=== PATIENT | male | born 1960 | race Caucasian/White ===

== ENCOUNTER 2016-04-12 09:11 | Emergency (ER) | payer BC ==
[~2016-04-12 09:11] MED LIST: ACET65TA; CIPR500T19; FLAG500T; IBUP600T; No Historical Meds; VICO5TAB
[2016-04-12 10:30] LABS: BASO % 0.4 % (0.0-1.0); EOS # 0.1 K/mm3 (0.0-0.50); EOS % 1.2 % (0.0-3.0); LARGE UNSTAINED CELL # 0.2 K/mm3 (0.0-0.4); LARGE UNSTAINED CELL % 1.8 % (0.0-4.0); LYMPH # 2.4 K/mm3 (1.5-4.5); LYMPH % 27.4 % (24.0-44.0); MEAN CORPUSCULAR HEMOGLOBIN 27.6 pg (27.0-33.0); MEAN CORPUSCULAR HGB CONC 32.3 g/dl (32.0-36.5); MEAN CORPUSCULAR VOLUME 85.6 fl (80.0-96.0); MONO # 0.5 K/mm3 (0.0-0.8); MONO % 5.7 % (0.0-5.0); NEUTROPHILS # 5.5 K/mm3 (1.8-7.7); NEUTROPHILS % 63.4 % (36.0-66.0); PLATELET COUNT, AUTOMATED 269 k/mm3 (150-450); WHITE BLOOD COUNT 8.6 K/mm3 (4.0-10.0)
[2016-04-12 10:56] LABS: ANION GAP 5 MEQ/L (8-16); BLOOD UREA NITROGEN 17 MG/DL (7-18); CARBON DIOXIDE LEVEL 28 MEQ/L (21-32); CHLORIDE LEVEL 108 MEQ/L (98-107); GLOMERULAR FILTRATION RATE > 60.0 (>56); GLUCOSE, FASTING 101 MG/DL (70-105); POTASSIUM SERUM 4.3 MEQ/L (3.5-5.1); SODIUM LEVEL 141 MEQ/L (136-145)
--- NOTE | 2016-04-12 11:20 | EDDOCDS ---
Physician Documentation [facility] Name: Dom Delong Age: 55 yrs Sex: Male : 1960 Arrival Date: 04/12/2016 Time: 09:11 Bed 14 Private MD: Yung Cordero Disposition: 04/12/16 11:08 Discharged to Home/Self Care. Impression: Strain of muscle and tendon of unspecified wall of thorax. - Condition is Stable. - Discharge Instructions: Muscle Strain. - Prescriptions for Naprosyn 500 mg Oral Tablet - take 1 tablet by ORAL route 2 times per day take with food; 30 tablet. - Medication Reconciliation, Local Pharmacy Hours form. - Follow up: Yung Cordero MD; When: As needed; Reason: Recheck today's complaints, Continuance of care. Follow up: Emergency Department; When: As needed; Reason: Trouble breathing, Worsening of conditions. - Problem is new. - Symptoms have improved. Historical: - Allergies: ANTIHISTAMINES; - Home Meds: 1. Nghia 5-20 mg oral tab 1 tab once daily - PMHx: Hypertension; - PSHx: Appendectomy; left knee; Sinus Surgery; Cholecystectomy; Hernia repair; - Social history: Smoking status: Patient states former smoker of tobacco. No barriers to communication noted, The patient speaks fluent Romanian, Speaks appropriately for age. - Family history: Not pertinent. - : The pt / caregiver states he / she is not on anticoagulants. Home medication list is obtained from the patient. - Exposure Risk Screening:: None identified. Vital Signs: 04/12 09:12 BP 163 / 82; Pulse 86; Resp 18; Temp 98.2(O); Pulse Ox 97% on R/A; Weight 113.4 kg / dem1 250 lbs; Height 5 ft. 8 in. (172.72 cm); Pain 7/10; 10:11 BP 130 / 78 (auto/); kc3 10:12 Pulse 80 MON; Pulse Ox 96% ; kc3 10:26 BP 120 / 73 (auto/); kc3 10:26 Pulse 74 MON; Pulse Ox 94% ; kc3 10:41 BP 118 / 72 (auto/); kc3 10:41 Pulse 74 MON; Pulse Ox 96% ; kc3 10:56 BP 128 / 75 (auto/); kc3 10:56 Pulse 70 MON; Pulse Ox 95% ; kc3 11:17 BP 122 / 77; Pulse 78; Resp 18; Temp 97.7(O); Pulse Ox 95% on R/A; Pain 3/10; kc3 09:12 Body Mass Index 38.01 (113.40 kg, 172.72 cm) dem1 MDM: 09:31 ECG WITH READING ER PHYS+CARDIAG ordered. EDMS 09:56 Financial registration complete. gb 09:56 [facility] Payment Agreement was scanned into [employer] and attached to record. gb 10:01 [employer] Architect/Pulse Ox/q 15 min VS ordered. ar2 10:02 CBC with Diff Ordered. EDMS 10:02 MED Profile Ordered. EDMS 10:02 D-Dimer Quant Ordered. EDMS 10:02 Troponin Ordered. EDMS 10:03 Rib Unilat W/PA Chest Only Ordered. EDMS 11:01 CBC with Diff Reviewed. ar2 11:01 MED Profile Reviewed. ar2 11:01 D-Dimer Quant Reviewed. ar2 11:01 Troponin Reviewed. ar2 Signatures: Dispatcher [employer] EDMS Nati Betancourt, Reg Reg gb Doc Carranza, RN RN mlb1 [place], PA-C PA-C ar2 Ashwini Ovalle,RN RN kc3 The chart was reviewed and I authenticate all verbal orders and agree with the evaluation and treatment provided.Attachments: 09:56 [facility] Payment Agreement gb MTDD
--- NOTE | 2016-04-12 11:20 | EDDOCDS ---
Nurse's Notes [facility] Name: Dom Delong Age: 55 yrs Sex: Male : 1960 Arrival Date: 04/12/2016 Time: 09:11 Bed 14 Private MD: Yung Cordero Diagnosis: Strain of muscle and tendon of unspecified wall of thorax Presentation: 04/12 09:14 Presenting complaint: Patient states: Left lateral chest wall pain began "a couple mlb1 hours ago" pain with repiration and movement. Acute neurological deficits are not present. Mechanism of Injury: No Mechanism of Injury. Adult Sepsis Screening: The patient does not have new or worsening altered mentation. Patient's respiratory rate is less than 22. Systolic blood pressure is greater than 100. Patient has a qSOFA score of 0- Negative Sepsis Screen. Suicide/Homicide risk assessment- the patient denies having any suicidal and/or homicidal ideations and does not present with any other emotional, behavioral or mental health complaints. Status: Patient is not a customer service administrator or dependent. Transition of care: patient was not received from another setting of care. 09:14 Acuity: FACUNDO Level 3 mlb1 09:14 Method Of Arrival: Walkin/Carried/Asstd mlb1 Triage Assessment: 09:17 General: Appears in no apparent distress, Behavior is appropriate for age, cooperative. mlb1 Pain: Location: left lateral posterior chest Pain currently is 4 out of 10 on a pain scale. At worst was 10 out of 10 on a pain scale. Pt Declines HIV testing. Respiratory: Airway is patent Respiratory effort is even, unlabored. Musculoskeletal: Range of motion intact in all extremities. Historical: - Allergies: ANTIHISTAMINES; - Home Meds: 1. Nghia 5-20 mg oral tab 1 tab once daily - PMHx: Hypertension; - PSHx: Appendectomy; left knee; Sinus Surgery; Cholecystectomy; Hernia repair; - Social history: Smoking status: Patient states former smoker of tobacco. No barriers to communication noted, The patient speaks fluent Panamanian, Speaks appropriately for age. - Family history: Not pertinent. - : The pt / caregiver states he / she is not on anticoagulants. Home medication list is obtained from the patient. - Exposure Risk Screening:: None identified. Screenin:22 Screening information is obtained from the patient. Fall risk: No risks identified. kc3 Assistance ADL's: requires no assistance with activities of daily living. Abuse/DV Screen: The patient / caregiver reports he/she is: not in a situation that causes fear, pain or injury. Nutritional screening: No deficits noted. home support is adequate. 11:18 Advance Directives: Currently, there is no health care proxy. kc3 Assessment: 10:21 General: Appears in no apparent distress, comfortable, Behavior is appropriate for age, kc3 cooperative. Pain: Location: left lateral posterior chest Pain currently is 5 out of 10 on a pain scale. Neurological: Level of Consciousness is awake, alert, obeys commands, Oriented to person, place, time. Cardiovascular: Rhythm is regular. Cardiovascular: Chest pain is described as Pain is 5 out of 10 on a pain scale. radiates back episodes are continuous. Respiratory: Airway is patent Respiratory effort is even, unlabored, Reports pain with respiration. Derm: Skin is pink, warm & dry. Musculoskeletal: Circulation, motion, and sensation intact. 11:16 General: Appears in no apparent distress, comfortable, Behavior is appropriate for age, kc3 cooperative. Pain: Location: left lateral posterior chest Pain currently is 3 out of 10 on a pain scale. Neurological: Level of Consciousness is awake, alert, obeys commands, Oriented to person, place, time. Cardiovascular: Rhythm is regular Chest pain. Respiratory: Respiratory effort is even, unlabored. Derm: Skin is pink, warm & dry. Vital Signs: 09:12 BP 163 / 82; Pulse 86; Resp 18; Temp 98.2(O); Pulse Ox 97% on R/A; Weight 113.4 kg; dem1 Height 5 ft. 8 in. (172.72 cm); Pain 7/10; 10:11 BP 130 / 78 (auto/); kc3 10:12 Pulse 80 MON; Pulse Ox 96% ; kc3 10:26 BP 120 / 73 (auto/); kc3 10:26 Pulse 74 MON; Pulse Ox 94% ; kc3 10:41 BP 118 / 72 (auto/); kc3 10:41 Pulse 74 MON; Pulse Ox 96% ; kc3 10:56 BP 128 / 75 (auto/); kc3 10:56 Pulse 70 MON; Pulse Ox 95% ; kc3 11:17 BP 122 / 77; Pulse 78; Resp 18; Temp 97.7(O); Pulse Ox 95% on R/A; Pain 3/10; kc3 09:12 Body Mass Index 38.01 (113.40 kg, 172.72 cm) [facility] Vitals: 09:12 Log In Time: April 12, 2016 at 09:10. [facility] ED Course: 09:12 Patient visited by Martha Cummings. dem1 09:12 Yung Cordero MD is Private Physician. dem1 09:12 Patient moved to Waiting dem1 09:13 Patient moved to Pre RCE dem1 09:14 Patient visited by Doc Carranza RN. mlb1 09:15 Triage Initiated mlb1 09:17 Patient visited by Doc Carranza RN. mlb1 09:17 Patient moved to Triage 2 mlb1 09:24 [place] PA-C is PHCP. ar2 09:24 Chucho Davis MD is Attending Physician. ar2 09:27 Patient visited by [place] PA-C. ar2 09:34 Patient moved to PD ck1 09:40 EKG done. (by ED staff). Reviewed by [place] PA-C. jml1 09:41 Patient visited by Michele Myers. jml1 09:56 [facility] Payment Agreement was scanned into [employer] and attached to record. gb 09:58 Patient name changed from Dom\\S\\H\\S\\Delong\\S\\ to Dom\\S\\Sergey\\S\\Delong. EDMS 10:04 Ashwini Ovalle RN is Primary Nurse. ck1 10:04 Patient moved to 14 ck1 10:21 Patient visited by Ashwini Ovalle RN. kc3 10:21 Troponin Sent. kc3 10:21 D-Dimer Quant Sent. kc3 10:21 MED Profile Sent. kc3 10:21 CBC with Diff Sent. kc3 10:22 Inserted saline lock: 20 gauge in left antecubital area and blood collected. The kc3 patient tolerated the procedure well. 10:23 The patient / caregiver is instructed regarding the plan of care and ED course. kc3 10:53 Patient visited by Ashwini Ovalle RN. kc3 11:07 Yung Cordero MD is Referral Physician. ar2 11:09 Patient visited by [place] PA-C. ar2 11:18 Discontinued IV lock intact, bleeding controlled, pressure dressing applied, No kc3 redness/swelling at site. No procedures done that require assistance. Order Results: Lab Order: CBC with Diff; SPEC'M 04/12/16 10:18 Test: WHITE BLOOD COUNT; Value: 8.6; Range: 4.0-10.0; Units: K/mm3; Status: F Test: RED BLOOD COUNT; Value: 5.23; Range: 4.30-6.10; Units: M/mm3; Status: F Test: HEMOGLOBIN; Value: 14.4; Range: 14.0-18.0; Units: g/dl; Status: F Test: HEMATOCRIT; Value: 44.8; Range: 42.0-52.0; Units: %; Status: F Test: MEAN CORPUSCULAR VOLUME; Value: 85.6; Range: 80.0-96.0; Units: fl; Status: F Test: MEAN CORPUSCULAR HEMOGLOBIN; Value: 27.6; Range: 27.0-33.0; Units: pg; Status: F Test: MEAN CORPUSCULAR HGB CONC; Value: 32.3; Range: 32.0-36.5; Units: g/dl; Status: F Test: RED CELL DISTRIBUTION WIDTH; Value: 13.0; Range: 11.5-14.5; Units: %; Status: F Test: PLATELET COUNT, AUTOMATED; Value: 269; Range: 150-450; Units: k/mm3; Status: F Test: NEUTROPHILS %; Value: 63.4; Range: 36.0-66.0; Units: %; Status: F Test: LYMPH %; Value: 27.4; Range: 24.0-44.0; Units: %; Status: F Test: MONO %; Value: 5.7; Range: 0.0-5.0; Abnormal: Above high normal; Units: %; Status: F Test: EOS %; Value: 1.2; Range: 0.0-3.0; Units: %; Status: F Test: BASO %; Value: 0.4; Range: 0.0-1.0; Units: %; Status: F Test: LARGE UNSTAINED CELL %; Value: 1.8; Range: 0.0-4.0; Units: %; Status: F Test: NEUTROPHILS #; Value: 5.5; Range: 1.8-7.7; Units: K/mm3; Status: F Test: LYMPH #; Value: 2.4; Range: 1.5-4.5; Units: K/mm3; Status: F Test: MONO #; Value: 0.5; Range: 0.0-0.8; Units: K/mm3; Status: F Test: EOS #; Value: 0.1; Range: 0.0-0.50; Units: K/mm3; Status: F Test: BASO #; Value: 0.0; Range: 0.0-0.2; Units: K/mm3; Status: F Test: LARGE UNSTAINED CELL #; Value: 0.2; Range: 0.0-0.4; Units: K/mm3; Status: F Lab Order: MED Profile; SPEC'M 04/12/16 10:18 Test: GLUCOSE, FASTING; Value: 101; Range: 70-105; Units: MG/DL; Status: F Test: BLOOD UREA NITROGEN; Value: 17; Range: 7-18; Units: MG/DL; Status: F Test: CREATININE FOR GFR; Value: 0.80; Range: 0.70-1.30; Units: MG/DL; Status: F Test: GLOMERULAR FILTRATION RATE; Value: > 60.0; Range: >56; Status: F Test: SODIUM LEVEL; Value: 141; Range: 136-145; Units: MEQ/L; Status: F Test: POTASSIUM SERUM; Value: 4.3; Range: 3.5-5.1; Units: MEQ/L; Status: F Test: CHLORIDE LEVEL; Value: 108; Range: 98-107; Abnormal: Above high normal; Units: MEQ/L; Status: F Test: CARBON DIOXIDE LEVEL; Value: 28; Range: 21-32; Units: MEQ/L; Status: F Test: ANION GAP; Value: 5; Range: 8-16; Abnormal: Below low normal; Units: MEQ/L; Status: F Test: CALCIUM LEVEL; Value: 9.0; Range: 8.5-10.1; Units: MG/DL; Status: F Test Note: ; Units are mL/min/1.73 m2 Chronic Kidney Disease Staging per NKF: Stage I & II GFR >=60 Normal to Mildly Decreased Stage III GFR 30-59 Moderately Decreased Stage IV GFR 15-29 Severely Decreased Stage V GFR <15 Very Little GFR Left ESRD GFR <15 on SENIOR COMPLIANCE OFFICER Lab Order: D-Dimer Quant; SPEC'M 04/12/16 10:18 Test: D-DIMER QUANT; Value: 436.0; Range: <500; Units: ng/ml; Status: F Lab Order: Troponin; SPEC'M 04/12/16 10:18 Test: TROPONIN I; Value: < 0.02; Range: < 0.10; Units: NG/ML; Status: F Test Note: ; Troponin I Reference Interval for [facility] LOCI: 99th Percentile= 0.00-0.045 ng/ml Risk Stratification: <= 0.10 ng/ml Decreased Risk for Adverse Clinical Events. 0.10-1.50 ng/ml Increased Risk for Adverse Clinical Events. Evaluation of additional criterion and/or repeat testing in 2-6 hours is suggested to rule out myocardial damage. >= 1.50 ng/ml Indicative of Myocardial Injury. Outcome: 11:08 Discharge ordered by Provider. ar2 11:18 Discharge Assessment: Patient awake, alert and oriented x 3. No cognitive and/or kc3 functional deficits noted. Patient verbalized understanding of disposition instructions. patient administered narcotics - no. The following High Risk Discharge criteria are identified: None. Discharged to home ambulatory. Condition: stable. Discharge instructions given to patient, Instructed on discharge instructions, follow up and referral plans. medication usage, Demonstrated understanding of instructions, medications, Pt was receptive of discharge instructions/ teaching. Prescriptions given X 1. No special radiology studies were completed. Property :Personal belongings accompany Pt. 11:18 Patient left the ED. kc3 Signatures: Dispatcher [employer] EDMS Nati Betancourt, Reg Reg Doc Perez, RN RN mlb1 Sri Saucedo,RN RN ck1 [place] PA-C PA-C ar2 Michele Myersl1 Martha Cummings Kelsi,RN RN kc3 MTDD
--- NOTE | 2016-04-12 11:48 | REP ---
PA CHEST WITH LEFT RIBS: 04/12/2016. Clinical history: Lateral chest wall pain. Findings. Lungs are well inflated and without infiltrate or effusion. The heart, mediastinal and hilar contours are normal. Airway is intact. There is an azygos lobe fissure in the right medial apex unchanged and a benign variation. There are degenerative changes in the spine. No free air under the diaphragm. There is image artifact over the right upper quadrant. Left ribs: Four views of the ribs show the clavicle, scapula and visualized humerus intact. Posterior rib articulations are preserved. There are marginal osteophytes throughout the mid and lower thoracic spine and into the upper lumbar spine right upper quadrant clips from cholecystectomy are seen in the ribs show no visible or displaced fracture, avulsion, focal lesion, lateral pleural thickening, effusion or pneumothorax. Impression: 1. Negative PA chest and left rib series for any acute finding. Signed by Kavin Haynes MD 04/12/2016 07:34 P
--- NOTE | 2016-04-12 14:42 | ECGEPIP ---
Stationary ECG Study [facility] - ED Test Date: 2016-04-12 Pat Name: ZACKARY GOODE Department: Room: - Gender: M Chaser Tar: JAIMEE : 1960 Requested By: JENNIFER HOOKS PA-C. Order Number: [id number] Reading MD: Chucho Davis Measurements Intervals [place] Rate: 80 P: 11 CA: 213 QRS: -16 QRSD: 121 T: 11 QT: 369 QTc: 426 Interpretive Statements SINUS RHYTHM WITH FIRST DEGREE AV BLOCK RIGHT BUNDLE BRANCH BLOCK cw 03/17/13 - rate decreased nonspecific st t wave changes Electronically Signed On 04-12-2016 14:42:11 EST by Chucho Davis
--- NOTE | 2016-04-14 12:20 | EDDOCDS ---
Physician Documentation [facility] Name: Dom Delong Age: 55 yrs Sex: Male : 1960 Arrival Date: 04/12/2016 Time: 09:11 Bed 14 Private MD: Yung Cordero Disposition: 04/12/16 11:08 Discharged to Home/Self Care. Impression: Strain of muscle and tendon of unspecified wall of thorax. - Condition is Stable. - Discharge Instructions: Muscle Strain. - Prescriptions for Naprosyn 500 mg Oral Tablet - take 1 tablet by ORAL route 2 times per day take with food; 30 tablet. - Medication Reconciliation, Local Pharmacy Hours form. - Follow up: Yung Cordero MD; When: As needed; Reason: Recheck today's complaints, Continuance of care. Follow up: Emergency Department; When: As needed; Reason: Trouble breathing, Worsening of conditions. - Problem is new. - Symptoms have improved. Historical: - Allergies: ANTIHISTAMINES; - Home Meds: 1. Nghia 5-20 mg oral tab 1 tab once daily - PMHx: Hypertension; - PSHx: Appendectomy; left knee; Sinus Surgery; Cholecystectomy; Hernia repair; - Social history: Smoking status: Patient states former smoker of tobacco. No barriers to communication noted, The patient speaks fluent Turkish, Speaks appropriately for age. - Family history: Not pertinent. - : The pt / caregiver states he / she is not on anticoagulants. Home medication list is obtained from the patient. - Exposure Risk Screening:: None identified. Vital Signs: 04/12 09:12 BP 163 / 82; Pulse 86; Resp 18; Temp 98.2(O); Pulse Ox 97% on R/A; Weight 113.4 kg / dem1 250 lbs; Height 5 ft. 8 in. (172.72 cm); Pain 7/10; 10:11 BP 130 / 78 (auto/); kc3 10:12 Pulse 80 MON; Pulse Ox 96% ; kc3 10:26 BP 120 / 73 (auto/); kc3 10:26 Pulse 74 MON; Pulse Ox 94% ; kc3 10:41 BP 118 / 72 (auto/); kc3 10:41 Pulse 74 MON; Pulse Ox 96% ; kc3 10:56 BP 128 / 75 (auto/); kc3 10:56 Pulse 70 MON; Pulse Ox 95% ; kc3 11:17 BP 122 / 77; Pulse 78; Resp 18; Temp 97.7(O); Pulse Ox 95% on R/A; Pain 3/10; kc3 09:12 Body Mass Index 38.01 (113.40 kg, 172.72 cm) dem1 MDM: 09:31 ECG WITH READING ER PHYS+CARDIAG ordered. EDMS 09:56 Financial registration complete. gb 09:56 [facility] Payment Agreement was scanned into [employer] and attached to record. gb 10:01 Material Cutter/Pulse Ox/q 15 min VS ordered. ar2 10:02 CBC with Diff Ordered. EDMS 10:02 MED Profile Ordered. EDMS 10:02 D-Dimer Quant Ordered. EDMS 10:02 Troponin Ordered. EDMS 10:03 Rib Unilat W/PA Chest Only Ordered. EDMS 11:01 CBC with Diff Reviewed. ar2 11:01 MED Profile Reviewed. ar2 11:01 D-Dimer Quant Reviewed. ar2 11:01 Troponin Reviewed. ar2 17:49 T-Sheet-- Draft Copy was scanned into [employer] and attached to record. r 04/13 18:26 ECG/EKG was scanned into [employer] and attached to record. kf3 Signatures: Dispatcher [employer] EDMS Nati Betancourt, Reg Reg gb Doc Carranza, RN RN mlb1 Yo Bell, Reg Reg kf3 [place], PA-C PA-C ar2 Ashwini Ovalle RN RN kc3 Lety Dalton The chart was reviewed and I authenticate all verbal orders and agree with the evaluation and treatment provided.Attachments: 04/12 09:56 [facility] Payment Agreement gb 17:49 T-Sheet-- Draft Copy r 04/13 18:26 ECG/EKG kf3 Chart Complete MTDD
--- NOTE | 2016-04-14 12:20 | EDDOCDS ---
Nurse's Notes [facility] Name: Zackary Delong Age: 55 yrs Sex: Male : 1960 Arrival Date: 04/12/2016 Time: 09:11 Bed 14 Private MD: Yung Cordero Diagnosis: Strain of muscle and tendon of unspecified wall of thorax Presentation: 04/12 09:14 Presenting complaint: Patient states: Left lateral chest wall pain began "a couple mlb1 hours ago" pain with repiration and movement. Acute neurological deficits are not present. Mechanism of Injury: No Mechanism of Injury. Adult Sepsis Screening: The patient does not have new or worsening altered mentation. Patient's respiratory rate is less than 22. Systolic blood pressure is greater than 100. Patient has a qSOFA score of 0- Negative Sepsis Screen. Suicide/Homicide risk assessment- the patient denies having any suicidal and/or homicidal ideations and does not present with any other emotional, behavioral or mental health complaints. Status: Patient is not a x ray service technician or dependent. Transition of care: patient was not received from another setting of care. 09:14 Acuity: FACUNDO Level 3 mlb1 09:14 Method Of Arrival: Walkin/Carried/Asstd mlb1 Triage Assessment: 09:17 General: Appears in no apparent distress, Behavior is appropriate for age, cooperative. mlb1 Pain: Location: left lateral posterior chest Pain currently is 4 out of 10 on a pain scale. At worst was 10 out of 10 on a pain scale. Pt Declines HIV testing. Respiratory: Airway is patent Respiratory effort is even, unlabored. Musculoskeletal: Range of motion intact in all extremities. Historical: - Allergies: ANTIHISTAMINES; - Home Meds: 1. Nghia 5-20 mg oral tab 1 tab once daily - PMHx: Hypertension; - PSHx: Appendectomy; left knee; Sinus Surgery; Cholecystectomy; Hernia repair; - Social history: Smoking status: Patient states former smoker of tobacco. No barriers to communication noted, The patient speaks fluent Malian, Speaks appropriately for age. - Family history: Not pertinent. - : The pt / caregiver states he / she is not on anticoagulants. Home medication list is obtained from the patient. - Exposure Risk Screening:: None identified. Screenin:22 Screening information is obtained from the patient. Fall risk: No risks identified. kc3 Assistance ADL's: requires no assistance with activities of daily living. Abuse/DV Screen: The patient / caregiver reports he/she is: not in a situation that causes fear, pain or injury. Nutritional screening: No deficits noted. home support is adequate. 11:18 Advance Directives: Currently, there is no health care proxy. kc3 Assessment: 10:21 General: Appears in no apparent distress, comfortable, Behavior is appropriate for age, kc3 cooperative. Pain: Location: left lateral posterior chest Pain currently is 5 out of 10 on a pain scale. Neurological: Level of Consciousness is awake, alert, obeys commands, Oriented to person, place, time. Cardiovascular: Rhythm is regular. Cardiovascular: Chest pain is described as Pain is 5 out of 10 on a pain scale. radiates back episodes are continuous. Respiratory: Airway is patent Respiratory effort is even, unlabored, Reports pain with respiration. Derm: Skin is pink, warm & dry. Musculoskeletal: Circulation, motion, and sensation intact. 11:16 General: Appears in no apparent distress, comfortable, Behavior is appropriate for age, kc3 cooperative. Pain: Location: left lateral posterior chest Pain currently is 3 out of 10 on a pain scale. Neurological: Level of Consciousness is awake, alert, obeys commands, Oriented to person, place, time. Cardiovascular: Rhythm is regular Chest pain. Respiratory: Respiratory effort is even, unlabored. Derm: Skin is pink, warm & dry. Vital Signs: 09:12 BP 163 / 82; Pulse 86; Resp 18; Temp 98.2(O); Pulse Ox 97% on R/A; Weight 113.4 kg; dem1 Height 5 ft. 8 in. (172.72 cm); Pain 7/10; 10:11 BP 130 / 78 (auto/); kc3 10:12 Pulse 80 MON; Pulse Ox 96% ; kc3 10:26 BP 120 / 73 (auto/); kc3 10:26 Pulse 74 MON; Pulse Ox 94% ; kc3 10:41 BP 118 / 72 (auto/); kc3 10:41 Pulse 74 MON; Pulse Ox 96% ; kc3 10:56 BP 128 / 75 (auto/); kc3 10:56 Pulse 70 MON; Pulse Ox 95% ; kc3 11:17 BP 122 / 77; Pulse 78; Resp 18; Temp 97.7(O); Pulse Ox 95% on R/A; Pain 3/10; kc3 09:12 Body Mass Index 38.01 (113.40 kg, 172.72 cm) [facility] Vitals: 09:12 Log In Time: April 12, 2016 at 09:10. [facility] ED Course: 09:12 Patient visited by Martha Cummings. dem1 09:12 Yung Cordero MD is Private Physician. dem1 09:12 Patient moved to Waiting dem1 09:13 Patient moved to Pre RCE dem1 09:14 Patient visited by Doc Carranza RN. mlb1 09:15 Triage Initiated mlb1 09:17 Patient visited by Dco Carranza RN. mlb1 09:17 Patient moved to Triage 2 mlb1 09:24 Jennifer Hooks PA-C is PHCP. ar2 09:24 Chucho Davis MD is Attending Physician. ar2 09:27 Patient visited by Jennifer Hooks PA-C. ar2 09:34 Patient moved to PD ck1 09:40 EKG done. (by ED staff). Reviewed by Jennifer Hooks PA-C. jml1 09:41 Patient visited by Michele Myers. jml1 09:56 [facility] Payment Agreement was scanned into [email or web address] and attached to record. gb 09:58 Patient name changed from Zackary\\S\\H\\S\\Delong\\S\\ to Zackary\\S\\Sergey\\S\\Delong. EDMS 10:04 Ashwini Ovalle RN is Primary Nurse. ck1 10:04 Patient moved to 14 ck1 10:21 Patient visited by Ashwini Ovalle RN. kc3 10:21 Troponin Sent. kc3 10:21 D-Dimer Quant Sent. kc3 10:21 MED Profile Sent. kc3 10:21 CBC with Diff Sent. kc3 10:22 Inserted saline lock: 20 gauge in left antecubital area and blood collected. The kc3 patient tolerated the procedure well. 10:23 The patient / caregiver is instructed regarding the plan of care and ED course. kc3 10:53 Patient visited by Ashwini Ovalle RN. kc3 11:07 Yung Cordero MD is Referral Physician. ar2 11:09 Patient visited by Jennifer Hooks PA-C. ar2 11:18 Discontinued IV lock intact, bleeding controlled, pressure dressing applied, No kc3 redness/swelling at site. No procedures done that require assistance. 12:05 Rib Unilat W/PA Chest Only Returned. EDMS 14:56 EKG-ADULT Returned. EDMS 17:49 T-Sheet-- Draft Copy was scanned into [email or web address] and attached to record. klr 04/13 18:26 ECG/EKG was scanned into [email or web address] and attached to record. kf3 Order Results: Lab Order: CBC with Diff; SPEC'M 04/12/16 10:18 Test: WHITE BLOOD COUNT; Value: 8.6; Range: 4.0-10.0; Units: K/mm3; Status: F Test: RED BLOOD COUNT; Value: 5.23; Range: 4.30-6.10; Units: M/mm3; Status: F Test: HEMOGLOBIN; Value: 14.4; Range: 14.0-18.0; Units: g/dl; Status: F Test: HEMATOCRIT; Value: 44.8; Range: 42.0-52.0; Units: %; Status: F Test: MEAN CORPUSCULAR VOLUME; Value: 85.6; Range: 80.0-96.0; Units: fl; Status: F Test: MEAN CORPUSCULAR HEMOGLOBIN; Value: 27.6; Range: 27.0-33.0; Units: pg; Status: F Test: MEAN CORPUSCULAR HGB CONC; Value: 32.3; Range: 32.0-36.5; Units: g/dl; Status: F Test: RED CELL DISTRIBUTION WIDTH; Value: 13.0; Range: 11.5-14.5; Units: %; Status: F Test: PLATELET COUNT, AUTOMATED; Value: 269; Range: 150-450; Units: k/mm3; Status: F Test: NEUTROPHILS %; Value: 63.4; Range: 36.0-66.0; Units: %; Status: F Test: LYMPH %; Value: 27.4; Range: 24.0-44.0; Units: %; Status: F Test: MONO %; Value: 5.7; Range: 0.0-5.0; Abnormal: Above high normal; Units: %; Status: F Test: EOS %; Value: 1.2; Range: 0.0-3.0; Units: %; Status: F Test: BASO %; Value: 0.4; Range: 0.0-1.0; Units: %; Status: F Test: LARGE UNSTAINED CELL %; Value: 1.8; Range: 0.0-4.0; Units: %; Status: F Test: NEUTROPHILS #; Value: 5.5; Range: 1.8-7.7; Units: K/mm3; Status: F Test: LYMPH #; Value: 2.4; Range: 1.5-4.5; Units: K/mm3; Status: F Test: MONO #; Value: 0.5; Range: 0.0-0.8; Units: K/mm3; Status: F Test: EOS #; Value: 0.1; Range: 0.0-0.50; Units: K/mm3; Status: F Test: BASO #; Value: 0.0; Range: 0.0-0.2; Units: K/mm3; Status: F Test: LARGE UNSTAINED CELL #; Value: 0.2; Range: 0.0-0.4; Units: K/mm3; Status: F Lab Order: MED Profile; SPEC'M 04/12/16 10:18 Test: GLUCOSE, FASTING; Value: 101; Range: 70-105; Units: MG/DL; Status: F Test: BLOOD UREA NITROGEN; Value: 17; Range: 7-18; Units: MG/DL; Status: F Test: CREATININE FOR GFR; Value: 0.80; Range: 0.70-1.30; Units: MG/DL; Status: F Test: GLOMERULAR FILTRATION RATE; Value: > 60.0; Range: >56; Status: F Test: SODIUM LEVEL; Value: 141; Range: 136-145; Units: MEQ/L; Status: F Test: POTASSIUM SERUM; Value: 4.3; Range: 3.5-5.1; Units: MEQ/L; Status: F Test: CHLORIDE LEVEL; Value: 108; Range: 98-107; Abnormal: Above high normal; Units: MEQ/L; Status: F Test: CARBON DIOXIDE LEVEL; Value: 28; Range: 21-32; Units: MEQ/L; Status: F Test: ANION GAP; Value: 5; Range: 8-16; Abnormal: Below low normal; Units: MEQ/L; Status: F Test: CALCIUM LEVEL; Value: 9.0; Range: 8.5-10.1; Units: MG/DL; Status: F Test Note: ; Units are mL/min/1.73 m2 Chronic Kidney Disease Staging per NKF: Stage I & II GFR >=60 Normal to Mildly Decreased Stage III GFR 30-59 Moderately Decreased Stage IV GFR 15-29 Severely Decreased Stage V GFR <15 Very Little GFR Left ESRD GFR <15 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 0.10-1.50 ng/ml Increased Risk for Adverse Clinical Events. Evaluation of additional criterion and/or repeat testing in 2-6 hours is suggested to rule out myocardial damage. >= 1.50 ng/ml Indicative of Myocardial Injury. 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; : 1960 Requested By: JENNIFER HOOKS PA-C.; Order Number: [id number] Kwaku MD: Chucho Davis; Measurements; Intervals [place]; Rate: 80 P: 11; FL: 213 QRS: -16; QRSD: 121 T: 11; QT: 369; QTc: 426; Interpretive Statements; SINUS RHYTHM WITH FIRST DEGREE AV BLOCK; RIGHT BUNDLE BRANCH BLOCK; ; 03/17/13 - rate decreased; nonspecific st t wave changes; Electronically Signed On 04-12-2016 14:42:11 EST by Chucho Davis; Radiology Order: Rib Unilat W/PA Chest Only Test: Rib Unilat W/PA Chest Only REASON FOR EXAMINATION: lateral rib pain; PA CHEST WITH LEFT RIBS: 04/12/2016.; ; Clinical history: Lateral chest wall pain.; ; Findings. Lungs are well inflated and without infiltrate or effusion. The; heart, mediastinal and hilar contours are normal. Airway is intact. There is an; azygos lobe fissure in the right medial apex unchanged and a benign variation.; There are degenerative changes in the spine. No free air under the diaphragm.; There is image artifact over the right upper quadrant.; ; Left ribs: Four views of the ribs show the clavicle, scapula and visualized; humerus intact. Posterior rib articulations are preserved. There are marginal; osteophytes throughout the mid and lower thoracic spine and into the upper lumbar; spine right upper quadrant clips from cholecystectomy are seen in the ribs show; no visible or displaced fracture, avulsion, focal lesion, lateral pleural; thickening, effusion or pneumothorax.; ; Impression:; ; 1. Negative PA chest and left rib series for any acute finding.; ; ; Signed by; Kavin Haynes MD 04/12/2016 07:34 P; Outcome: 04/12 11:08 Discharge ordered by Provider. ar2 11:18 Discharge Assessment: Patient awake, alert and oriented x 3. No cognitive and/or kc3 functional deficits noted. Patient verbalized understanding of disposition instructions. patient administered narcotics - no. The following High Risk Discharge criteria are identified: None. Discharged to home ambulatory. Condition: stable. Discharge instructions given to patient, Instructed on discharge instructions, follow up and referral plans. medication usage, Demonstrated understanding of instructions, medications, Pt was receptive of discharge instructions/ teaching. Prescriptions given X 1. No special radiology studies were completed. Property :Personal belongings accompany Pt. 11:18 Patient left the ED. kc3 Signatures: Dispatcher [employer] EDMS Nati Betancourt, Reg Reg gb Doc Carranza RN RN mlb1 Sri Saucedo RN RN ck1 Yo Bell, Reg Reg kf3 Jennifer Hooks, PA-C PA-C ar2 Michele Myers jml1 Martha Cummings Kelsi,RN RN kc3 Lety Dalton Chart Complete MTDD
--- NOTE | 2016-04-14 12:20 | EDDOCDS ---
Physician Documentation [facility] Name: Dom Delong Age: 55 yrs Sex: Male : 1960 Arrival Date: 04/12/2016 Time: 09:11 Bed 14 Private MD: Yung Cordero Disposition: 04/12/16 11:08 Discharged to Home/Self Care. Impression: Strain of muscle and tendon of unspecified wall of thorax. - Condition is Stable. - Discharge Instructions: Muscle Strain. - Prescriptions for Naprosyn 500 mg Oral Tablet - take 1 tablet by ORAL route 2 times per day take with food; 30 tablet. - Medication Reconciliation, Local Pharmacy Hours form. - Follow up: Yung Cordero MD; When: As needed; Reason: Recheck today's complaints, Continuance of care. Follow up: Emergency Department; When: As needed; Reason: Trouble breathing, Worsening of conditions. - Problem is new. - Symptoms have improved. Historical: - Allergies: ANTIHISTAMINES; - Home Meds: 1. Nghia 5-20 mg oral tab 1 tab once daily - PMHx: Hypertension; - PSHx: Appendectomy; left knee; Sinus Surgery; Cholecystectomy; Hernia repair; - Social history: Smoking status: Patient states former smoker of tobacco. No barriers to communication noted, The patient speaks fluent Albanian, Speaks appropriately for age. - Family history: Not pertinent. - : The pt / caregiver states he / she is not on anticoagulants. Home medication list is obtained from the patient. - Exposure Risk Screening:: None identified. Vital Signs: 04/12 09:12 BP 163 / 82; Pulse 86; Resp 18; Temp 98.2(O); Pulse Ox 97% on R/A; Weight 113.4 kg / dem1 250 lbs; Height 5 ft. 8 in. (172.72 cm); Pain 7/10; 10:11 BP 130 / 78 (auto/); kc3 10:12 Pulse 80 MON; Pulse Ox 96% ; kc3 10:26 BP 120 / 73 (auto/); kc3 10:26 Pulse 74 MON; Pulse Ox 94% ; kc3 10:41 BP 118 / 72 (auto/); kc3 10:41 Pulse 74 MON; Pulse Ox 96% ; kc3 10:56 BP 128 / 75 (auto/); kc3 10:56 Pulse 70 MON; Pulse Ox 95% ; kc3 11:17 BP 122 / 77; Pulse 78; Resp 18; Temp 97.7(O); Pulse Ox 95% on R/A; Pain 3/10; kc3 09:12 Body Mass Index 38.01 (113.40 kg, 172.72 cm) dem1 MDM: 09:31 ECG WITH READING ER PHYS+CARDIAG ordered. EDMS 09:56 Financial registration complete. gb 09:56 [facility] Payment Agreement was scanned into [employer] and attached to record. 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 ar2 10:02 CBC with Diff Ordered. EDMS 10:02 MED Profile Ordered. EDMS 10:02 D-Dimer Quant Ordered. EDMS 10:02 Troponin Ordered. EDMS 10:03 Rib Unilat W/PA Chest Only Ordered. EDMS 11:01 CBC with Diff Reviewed. ar2 11:01 MED Profile Reviewed. ar2 11:01 D-Dimer Quant Reviewed. ar2 11:01 Troponin Reviewed. ar2 17:49 T-Sheet-- Draft Copy was scanned into [employer] and attached to record. r 04/13 18:26 ECG/EKG was scanned into [employer] and attached to record. kf3 Signatures: Dispatcher [employer] EDMS Nati Betancourt, Reg Reg gb Doc Carranza, RN RN mlb1 Yo Bell, Reg Reg kf3 [place], PA-C PA-C ar2 Ashwini Ovalle RN RN kc3 Lety Dalton The chart was reviewed and I authenticate all verbal orders and agree with the evaluation and treatment provided.Attachments: 04/12 09:56 [facility] Payment Agreement gb 17:49 T-Sheet-- Draft Copy r 04/13 18:26 ECG/EKG kf3 Chart Complete MTDD
== END 2016-04-12 11:18 | disposition home or self-care (01) ==
LOC: M ED 09:11
DX: S29.011A Strain of muscle and tendon of front wall of thorax, initial encounter (principal); X58.XXXA Exposure to other specified factors, initial encounter; Y92.89 Other specified places as the place of occurrence of the external cause; Y93.89 Activity, other specified; Y99.8 Other external cause status; I10 Essential (primary) hypertension; Z82.49 Family history of ischemic heart disease and other diseases of the circulatory system; Z79.899 Other long term (current) drug therapy; Z88.8 Allergy status to other drugs, medicaments and biological substances; Z87.891 Personal history of nicotine dependence

== ENCOUNTER 2016-07-25 16:05 | Emergency (ER) | payer BC ==
[~2016-07-25] VITALS: Ht 172.7 cm; Wt 113.4 kg
[2016-07-25] MEDS ORDERED: NS 1,000 ML IV SCH (16:16)
[2016-07-25] MEDS ORDERED: AZOR5TAB2 (16:25)
[2016-07-25] MEDS ORDERED: ASPIRIN 81 MG CHEW TABLET PO ONE (16:30)
[2016-07-25] MEDS ORDERED: MECLIZINE 25 MG TABLET PO ONE (16:30)
--- NOTE | 2016-07-25 16:39 | REP ---
Clinical: Altered mental status . Comparison: 01/22/2011 . Findings: The ventricles, sulci, and cisterns are normal in position and appearance. Ferreira-white differentiation is maintained. No acute intracranial hemorrhage, mass/mass effect, pathology or trauma/injury. No evidence for acute infarction. No extra-axial fluid collection. Calvarium is intact. Paranasal sinuses and mastoid air cells are clear. Impression: Normal noncontrast head CT. No evidence for acute intracranial pathology or trauma/injury. Signed by Kwadwo Peres MD 07/25/2016 04:30 P
[2016-07-25 16:49] LABS: BASO % 0.2 % (0.0-1.0); EOS % 0.3 % (0.0-3.0); LARGE UNSTAINED CELL # 0.1 K/mm3 (0.0-0.4); LARGE UNSTAINED CELL % 1.1 % (0.0-4.0); LYMPH # 2.2 K/mm3 (1.5-4.5); LYMPH % 22.1 % (24.0-44.0); MEAN CORPUSCULAR HEMOGLOBIN 28.6 pg (27.0-33.0); MEAN CORPUSCULAR HGB CONC 32.8 g/dl (32.0-36.5); MEAN CORPUSCULAR VOLUME 87.3 fl (80.0-96.0); MONO # 0.4 K/mm3 (0.0-0.8); MONO % 4.4 % (0.0-5.0); NEUTROPHILS # 7.2 K/mm3 (1.8-7.7); NEUTROPHILS % 71.8 % (36.0-66.0); PLATELET COUNT, AUTOMATED 265 k/mm3 (150-450); RED CELL DISTRIBUTION WIDTH 13.3 % (11.5-14.5)
[2016-07-25 17:11] LABS: ALBUMIN 3.7 GM/DL (3.2-5.2); ALBUMIN/GLOBULIN RATIO 0.95 (1.00-1.93); ALKALINE PHOSPHATASE 60 U/L (45-117); ALT/SGPT 26 U/L (12-78); ANION GAP 7 MEQ/L (8-16); AST/SGOT 14 U/L (15-37); BILIRUBIN,DIRECT 0.1 MG/DL (0.0-0.2); BILIRUBIN,TOTAL 0.8 MG/DL (0.2-1.0); BLOOD UREA NITROGEN 14 MG/DL (7-18); CALCIUM LEVEL 8.8 MG/DL (8.5-10.1); CARBON DIOXIDE LEVEL 27 MEQ/L (21-32); CHLORIDE LEVEL 106 MEQ/L (98-107); CREATININE FOR GFR 0.77 MG/DL (0.70-1.30); GLOMERULAR FILTRATION RATE > 60.0 (>56); GLUCOSE, FASTING 96 MG/DL (70-105); POTASSIUM SERUM 4.2 MEQ/L (3.5-5.1); SODIUM LEVEL 140 MEQ/L (136-145); TOTAL PROTEIN 7.6 GM/DL (6.4-8.2)
[2016-07-25 17:13] LABS: METHADONE URINE NEGATIVE (NEGATIVE)
[2016-07-25] MEDS ORDERED: MECL-68 PO (17:29)
[2016-07-25 17:50] VITALS: BP 126/67
--- NOTE | 2016-07-26 07:19 | ECGEPIP ---
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
== END 2016-07-25 17:52 | disposition home or self-care (01) ==
LOC: M ED 16:25
DX: H81.49 Vertigo of central origin, unspecified ear (principal); H83.09 Labyrinthitis, unspecified ear; R42 Dizziness and giddiness
CPT/HCPCS: 36415; 70450; 80048; 80076; 80306; 82550; 82553; 84443; 85025; 93005; 93041; 94760; 96360; 99284; G0480

== ENCOUNTER 2018-01-19 08:00 | Day surgery (SDC) | payer BC ==
[2018-01-19] MEDS ORDERED: PROPOFOL 200 MG/20 ML VIAL As Ordered ×2 (08:28)
[2018-01-19] MEDS ORDERED: LIDOCAINE 2% INJ 100 MG/5 ML SDV (FOR ANES.) As Ordered (08:29)
[2018-01-19] MEDS: NS 1,000 ML IV (08:34)
== END 2018-01-19 10:08 | disposition home or self-care (01) ==
LOC: M OPP 08:00
DX: R19.4 Change in bowel habit (principal); K57.30 Diverticulosis of large intestine without perforation or abscess without bleeding
CPT/HCPCS: 45378

== ENCOUNTER → 2018-05-09 | Outpatient (CLI) | payer BC ==
[~2018-05-09] MED LIST changes: +AZOR5TAB2; +CIPR-249 PO; +CYCL10TA; +FLAG500T PO; +IBUP80TA; +MECL-68 PO; +NORCOTAB PO; +ZOFR4TAB16 PO
--- NOTE | 2018-05-09 15:54 | REP ---
Left shoulder three views: There is no fracture or dislocation. There is a calcification lateral to the humeral head compatible with calcific tendonitis. The acromioclavicular glenohumeral articulations are unremarkable. Mineralization is normal. Impression: Calcific tendonitis. Electronically Signed by Tobi Dos Santos MD 05/09/2018 03:44 P
--- NOTE | 2018-05-09 15:55 | REP ---
Left clavicle two views: Mineralization is normal. Acromioclavicular joint is unremarkable. There is no fracture. There is calcification lateral to the humeral head compatible with calcific tendonitis. Impression: Calcific tendonitis of the rotator cuff. Negative clavicle Electronically Signed by Tobi Dos Santos MD 05/09/2018 03:45 P
== END ==
LOC: M WUC 15:03
PROVIDERS: ATTEND Physician Assistant
DX: M75.32 Calcific tendinitis of left shoulder (principal)

== ENCOUNTER 2018-05-12 13:23 | Emergency (ER) | payer BC ==
[~2018-05-12] VITALS: Ht 172.7 cm; Wt 260.0 kg
[~2018-05-12 13:23] MED LIST changes: -CIPR-249 PO; -CYCL10TA; -FLAG500T PO; -IBUP80TA; -NORCOTAB PO; -ZOFR4TAB16 PO
[2018-05-12] MEDS ORDERED: CYCL10TA (13:31)
[2018-05-12] MEDS ORDERED: IBUP80TA (13:31)
[2018-05-12] MEDS ORDERED: NS 1,000 ML IV SCH (16:17)
[2018-05-12] MEDS ORDERED: ONDANSETRON 4MG/2ML VIAL (J2405) IV ONE (16:30)
[2018-05-12] MEDS ORDERED: KETOROLAC 30 MG/ML VIAL (J1885) IV ONE (16:30)
[2018-05-12 17:09] LABS: BASO % 0.2 % (0.0-1.0); EOS % 0.3 % (0.0-3.0); HEMATOCRIT 43.1 % (42.0-52.0); HEMOGLOBIN 13.5 g/dl (13.5-17.5); LYMPH # 2.2 10^3/uL (1.5-4.5); LYMPH % 14.3 % (24.0-44.0); MEAN CORPUSCULAR HEMOGLOBIN 27.7 pg (27.0-33.0); MEAN CORPUSCULAR HGB CONC 31.3 g/dl (32.0-36.5); MEAN CORPUSCULAR VOLUME 88.3 fl (80.0-96.0); MONO # 1.5 10^3/uL (0.0-0.8); MONO % 9.6 % (0.0-5.0); NEUTROPHILS # 11.4 10^3/uL (1.8-7.7); NEUTROPHILS % 75.3 % (36.0-66.0); PLATELET COUNT, AUTOMATED 294 10^3/uL (150-450); RED BLOOD COUNT 4.88 10^6/uL (4.30-6.10); WHITE BLOOD COUNT 15.1 10^3/uL (4.0-10.0)
--- NOTE | 2018-05-12 17:26 | REP ---
CT ABDOMEN AND PELVIS WITHOUT CONTRAST: 05/12/2018. Clinical history. Renal colic. Comparison: CT 03/12/2017. Findings: CT abdomen: Lung bases are clear. Heart not enlarged. There is no pericardial thickening or effusion. No hepatosplenomegaly, focal hepatic or splenic lesion. Prior cholecystectomy noted. No biliary dilatation. Pancreas is unremarkable. Adrenal glands intact. There is a lateral interpolar cyst in the right kidney, unchanged. Neither kidney shows solid mass. There is no hydronephrosis or stone. No hydroureter or ureteral stone. Small bowel loops are without dilatation or air-fluid levels. There are clips in the cecal tip and no appendix is seen. Stool and gas are seen in the cecum, right and transverse colon to the splenic flexure. Atherosclerotic calcifications of the aorta noted. No pathologic sized abdominal adenopathy. The bones show some degenerative changes in the spine, unchanged. No spondylolysis. Visualized ribs are intact. CT pelvis: The sacrum, pelvis and hips show some degenerative changes but no destructive lesion. The distal left colon and sigmoid junction show inflammatory changes in the adjacent fat and evidence for diverticulosis with diverticulitis. I do not see perforation, free air or abscess. There is some fluid tracking along the lateral conal fascia. The mid to distal sigmoid and rectum are unremarkable. Bladder shows no wall thickening, mass or stone. Prostate grossly intact. No ventral or inguinal hernia nor pathologic inguinal adenopathy. Impression: 1. Distal left colon and proximal sigmoid diverticulitis, moderately severe but without perforation, abscess or free air. 2. Atherosclerotic calcifications aorta without aneurysm. No pathologic sized abdominal or pelvic adenopathy. Stable 2.5 cm right renal cyst. 3. No renal, ureteral or bladder stone. No hydronephrosis. Electronically Signed by Kavin Haynes MD 05/12/2018 10:02 P
[2018-05-12 17:28] LABS: ALBUMIN 3.7 GM/DL (3.2-5.2); ALT/SGPT 24 U/L (12-78); BILIRUBIN,DIRECT 0.2 MG/DL (0.0-0.2); BILIRUBIN,TOTAL 0.8 MG/DL (0.2-1.0); BLOOD UREA NITROGEN 21 MG/DL (7-18); CALCIUM LEVEL 9.2 MG/DL (8.5-10.1); CARBON DIOXIDE LEVEL 29 MEQ/L (21-32); CHLORIDE LEVEL 109 MEQ/L (98-107); GLOMERULAR FILTRATION RATE > 60.0 (>56); GLUCOSE, FASTING 82 MG/DL (70-100); LIPASE 110 U/L (73-393); POTASSIUM SERUM 4.9 MEQ/L (3.5-5.1); SODIUM LEVEL 146 MEQ/L (136-145); TOTAL PROTEIN 7.4 GM/DL (6.4-8.2)
[2018-05-12] MEDS ORDERED: CIPROFLOXACIN 500 MG TAB PO ONE (18:45)
[2018-05-12] MEDS ORDERED: metroNIDAZOLE (FLAGYL) 500 MG TAB PO ONE (18:45)
--- NOTE | 2018-05-12 18:50 | REP ---
SCROTAL ULTRASOUND: 05/12/2018. Clinical history: Lower abdominal pain, testicular pain. Findings: No prior studies. The right testis is 4.3 x 2.3 x 3 cm with a calculated volume of 15.5 mL. The left testis is 4.3 x 2.5 x 2.6 cm with calculated testicular 14.6 mL. Within the right testis is a 3 x 3 mm cyst. Blood flow in and around the testis is normal. The Doppler tracing shows resistive index of 0.67. There are a few tiny calcifications scattered. Some tubular ectasia of the rete testes noted bilaterally. The left testis also shows homogeneous appearance. Color flow is normal and Doppler tracing 0.62, normal. No solid mass or cyst. Just a couple of tiny calcifications are seen. There are very small hydroceles bilaterally. The scrotal wall thickness is 2.7 mm right and 2.5 mm left. No varicocele is seen. The epididymal head on the right is 0.7 cm; on the left is 0.9 cm in CC diameter. No epididymal head mass or cyst. No hyperemia. Impression: 1. Bilateral symmetric and normal sized testes. 3 x 3 mm cyst in the right testis which has a few tiny calcifications as does the left. Tubular ectasia of the rete testes noted bilaterally, benign finding. Normal blood flow. 2. Small bilateral hydroceles. No evidence of torsion or detorsion. 3. No varicocele. Epididymal head size normal without cyst or mass and no hyperemia. No epididymo-orchitis. No significant acute finding. Electronically Signed by Kavin Haynes MD 05/12/2018 10:06 P
[2018-05-12] MEDS ORDERED: NORCOTAB PO (19:15)
[2018-05-12] MEDS ORDERED: ZOFR4TAB16 PO (19:15)
[2018-05-12] MEDS ORDERED: CIPR-249 PO (19:15)
[2018-05-12] MEDS ORDERED: FLAG500T PO (19:15)
[2018-05-12 19:51] VITALS: BP 158/77
== END 2018-05-12 19:52 | disposition home or self-care (01) ==
LOC: M ED 13:23
DX: K57.32 Diverticulitis of large intestine without perforation or abscess without bleeding (principal); F41.0 Panic disorder [episodic paroxysmal anxiety]
CPT/HCPCS: 36415; 74176; 76870; 80048; 80076; 81001; 83690; 85025; 93976; 96374; 96375; 99284; J1885; J2405

== ENCOUNTER → 2018-08-25 | Outpatient (REF) | payer BC ==
[~2018-08-25] MED LIST changes: +CIPR-249 PO; +CYCL10TA; +FLAG500T PO; +HYDR-3715 PO; +IBUP80TA; +ZOFR4TAB16 PO
[2018-08-26 14:24] LABS: PSA TOTAL 2.3 ng/mL (0.0-4.0)
== END ==
LOC: M LAB REF 13:19
PROVIDERS: ATTEND Internal Medicine
DX: Z12.5 Encounter for screening for malignant neoplasm of prostate (principal)

== ENCOUNTER 2019-04-11 08:30 | Inpatient (IN) | payer BC ==
[~2019-04-11] VITALS: Ht 175.3 cm; Wt 110.2 kg
[~2019-04-11 08:30] MED LIST changes: -AZOR5TAB2; +AZOR5TAB2 PO; -MECL-68 PO; +MECL1TAB31 PO
--- NOTE | 2019-05-11 17:51 | HPE ---
DATE OF PLANNED ADMISSION: 05/12/2019 ADMITTING DIAGNOSIS: Sigmoid diverticulosis with history of recurrent diverticulitis. HISTORY OF PRESENT ILLNESS: The patient is a pleasant 58-year-old man who was seen for evaluation of several episodes of diverticulitis. He had reported several episodes of diverticulitis years ago. In April 2018, he was seen in the emergency department at [facility] with abdominal discomfort and was diagnosed with diverticulitis and discharged home on antibiotics. On 01/07/2019, he was seen at [facility] and was admitted for 2 days for treatment of sigmoid diverticulitis. He was discharged home on ciprofloxacin and Flagyl for a week. He had a colonoscopy in December 2017, which confirmed sigmoid diverticulosis. I had initially seen him in December 2018, and at that point he had been feeling well and elected to defer any further treatment; however, shortly thereafter, he reported a recurrence of pain in his left lower quadrant. That was in early January, and this responded well to antibiotics. However, again on , he noted some low abdominal and pelvic pain. He was again treated with antibiotics, and his symptoms resolved. The patient is now being admitted to undergo a sigmoid colectomy because of his recurring episodes of diverticulitis. He does have two prior CT scans that have shown inflammatory changes in the area of the junction of the descending and sigmoid colons. The patient was scheduled for surgery a month or so ago, but his surgery was delayed when his primary physician, Dr. Cordero, requested evaluation for possible sleep apnea. He did have a sleep study obtained, which confirmed sleep apnea, and he was provided with a continuous positive airway pressure (CPAP) device for management. The patient is now being admitted to undergo a robotic-assisted laparoscopic sigmoid colectomy. ALLERGIES: Patient reports no known drug allergies. CURRENT MEDICATIONS: Include amlodipine besylate/olmesartan 5/20 mg one tablet daily. He uses MiraLax on an as-needed basis for constipation. MEDICAL HISTORY: Significant for obesity. He has a history of nonalcoholic steatohepatitis. He has hypertension. He was recently diagnosed with sleep apnea. He also has a history of a chronic right bundle branch block on EKG. SURGICAL HISTORY: Significant for an appendectomy. He has had a cholecystectomy. He underwent knee surgery in 1988 and had sinus surgery in 1992. He had bilateral inguinal hernia repairs as a child. He has also had surgery for gynecomastia. 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 He reports only minimal alcohol intake. He is a former smoker and has 20-30 pack-year history. FAMILY HISTORY: His father had prostate cancer, as did one brother. REVIEW OF SYSTEMS: Reveals no chest pain or palpitations. He denies any shortness of breath, cough, or wheezing. He has no history of abdominal pain currently. He denies any dysuria or hematuria. He denies any significant bone or joint issues. He has no history of deep venous thrombosis (DVT) or pulmonary embolus. There is no history of seizure, stroke, or chronic severe headaches. PHYSICAL EXAMINATION: The patient is alert and oriented. Sclerae are anicteric. Mucous membranes are moist. The neck is supple without mass or adenopathy. There are no cervical bruits. Lung exam reveals clear breath sounds bilaterally. Heart exam shows a regular rate and rhythm. The abdomen is somewhat obese. There is some scarring consistent with his prior surgery. He has normoactive bowel sounds. The abdomen is soft and nontender, and there is no appreciable mass. Lower extremities are without edema, and he has intact radial and pedal pulses. Skin is warm and dry. Patient's mood is appropriate and pleasant. IMPRESSION: 1. Sigmoid diverticulosis with recurring diverticulitis. 2. Obstructive sleep apnea. 3. Hypertension. 4. Obesity. 5. Anxiety and depression. 6. Right bundle branch block. PLAN: Patient is being admitted on 05/12/2019 to undergo a robotic-assisted laparoscopic sigmoid colectomy. Patient has been counseled for the procedure, to include the risks, which include, but are not limited to, bleeding, infection, scarring, adverse drug reaction, need for further surgery, injury of internal organ, anastomotic leak, and hernia. He is to perform a full mechanical and antibiotic bowel preparation utilizing neomycin and Flagyl and Suprep the day before surgery. He will receive a dose of antibiotic intravenously immediately preoperatively. He will also be given a dose of Entereg preoperatively. He was counseled to anticipate a hospital stay of approximately 3 days. The patient had an opportunity to ask questions and desires to proceed with the surgery as it has been outlined. Edited: [facility] 05/11/2019 [id number]
[2019-05-12] VITALS (8 sets, daily range): BP systolic 120–160; BP diastolic 62–82
[2019-05-12] MEDS ORDERED: cefoTEtan DISODIUM 2 GM in D5W MINI-BAG PLUS 50 ML IV ONE (06:30)
[2019-05-12] MEDS ORDERED: LACTATED RINGER'S 1000 ML IV ONE (06:30)
[2019-05-12] MEDS ORDERED: LR 1,000 ML IV SCH ×2 (06:30→12:15)
[2019-05-12] MEDS ORDERED: ALVIMOPAN 12 MG CAPSULE (ENTEREG) PO ONE (07:00)
[2019-05-12] MEDS ORDERED: BUPIVACAINE HCL 0.25% 30 ML VIAL As Ordered ONE (07:13)
[2019-05-12] MEDS ORDERED: propofoL 200 MG/20 ML VIAL As Ordered ONE (07:23)
[2019-05-12] MEDS ORDERED: LIDOCAINE 2% INJ 100 MG/5 ML SDV (FOR ANES.) As Ordered ONE (07:23)
[2019-05-12] MEDS ORDERED: ROCURONIUM BROMIDE 50 MG/5 ML VIAL As Ordered ONE ×2 (07:23→08:18)
[2019-05-12] MEDS ORDERED: dexameTHASONE 4 MG/ML 1ML VIAL (J1100) As Ordered ONE (07:24)
[2019-05-12] MEDS ORDERED: ONDANSETRON 4MG/2ML VIAL (J2405) As Ordered ONE (07:24)
[2019-05-12] MEDS ORDERED: KETOROLAC 60 MG/2 ML VIAL (J1885) As Ordered ONE (07:24)
[2019-05-12] MEDS ORDERED: MIDAZOLAM INJ 2 MG/2 ML VIAL (J2250) As Ordered ONE (07:24)
[2019-05-12] MEDS ORDERED: ACETAMINOPHEN 1000MG 100ML IV BTL (OFIRMEV) (J0131 PER 10MG) As Ordered ONE (07:24)
[2019-05-12] MEDS ORDERED: fentaNYL 100 MCG/2 ML INJECTION (J3010) As Ordered ONE ×2 (07:24→12:15)
[2019-05-12] MEDS ORDERED: HYDROmorphone HCL 2 MG/ML 1ML VIAL (J1170) As Ordered ONE (08:46)
[2019-05-12] MEDS ORDERED: PHENYLephrine HCL 500 MCG/5 ML (100MCG/ML) SYRINGE (J2370) As Ordered ONE (09:03)
[2019-05-12] MEDS ORDERED: SUGAMMADEX SODIUM 500 MG/5 ML VIAL (BRIDION) As Ordered ONE (09:04)
[2019-05-12] MEDS ORDERED: oxyCODONE 5MG TAB PO PRN (12:15)
[2019-05-12] MEDS ORDERED: METOCLOPRAMIDE INJ 10MG/2ML VIAL (J2765) IV PRN (12:15)
[2019-05-12] MEDS ORDERED: ACETAMINOPHEN TAB 650MG DOSE (2X325MG) PO PRN (12:15)
[2019-05-12] MEDS ORDERED: ONDANSETRON 4MG/2ML VIAL (J2405) IV PRN (12:15)
[2019-05-12] MEDS: fentaNYL 100 MCG/2 ML INJECTION (J3010) IV PRN ×4 (12:18→12:40)
[2019-05-12] MEDS: ONDANSETRON 4MG/2ML VIAL (J2405) IV PRN (14:37)
[2019-05-12] MEDS: LR 1,000 ML IV SCH ×2 (14:37→21:47)
[2019-05-12] MEDS: IBUPROFEN 600 MG TAB PO SCH (17:33)
[2019-05-12] MEDS: amLODIPine 5 MG TAB PO SCH (17:34)
[2019-05-12] MEDS: MORPHINE 2 MG/ML 1ML VIAL (J2270) IV PRN (17:45)
[2019-05-12] MEDS ORDERED: cefoTEtan DISODIUM 1 GM in D5W MINI-BAG PLUS 50 ML IV ONE (20:00)
[2019-05-12] MEDS: OLMESARTAN MEDOXOMIL 20 MG TAB (BENICAR) PO SCH (20:19)
[2019-05-13] MEDS: MORPHINE 2 MG/ML 1ML VIAL (J2270) IV PRN (00:50)
[2019-05-13] MEDS: ONDANSETRON 4MG/2ML VIAL (J2405) IV PRN (00:50)
[2019-05-13 01:09] VITALS: BP 119/63
[2019-05-13] MEDS: IBUPROFEN 600 MG TAB PO SCH ×3 (01:58→17:28)
[2019-05-13] MEDS: NORCO, ANEXSIA 5/325MG TABLET (HYDROcodone/ACETAMINOPHEN) PO PRN ×3 (04:52→19:06)
[2019-05-13 06:00] VITALS: BP 122/68
[2019-05-13 06:55] LABS: BASO % 0.2 % (0.0-1.0); EOS % 0.2 % (0.0-3.0); HEMOGLOBIN 12.6 g/dl (13.5-17.5); LYMPH # 2.1 10^3/uL (1.5-5.0); LYMPH % 16.9 % (24.0-44.0); MEAN CORPUSCULAR HEMOGLOBIN 28.4 pg (27.0-33.0); MEAN CORPUSCULAR HGB CONC 32.3 g/dl (32.0-36.5); MEAN CORPUSCULAR VOLUME 87.8 fl (80.0-96.0); MONO # 1.3 10^3/uL (0.0-0.8); MONO % 10.9 % (0.0-5.0); NEUTROPHILS # 8.7 10^3/uL (1.5-8.5); NEUTROPHILS % 71.5 % (36.0-66.0); PLATELET COUNT, AUTOMATED 257 10^3/uL (150-450); RED BLOOD COUNT 4.44 10^6/uL (4.30-6.10); WHITE BLOOD COUNT 12.2 10^3/uL (4.0-10.0)
[2019-05-13 07:22] LABS: ALBUMIN 2.9 GM/DL (3.2-5.2); ALT/SGPT 21 U/L (12-78); BILIRUBIN,TOTAL 0.8 MG/DL (0.2-1.0); BLOOD UREA NITROGEN 7 MG/DL (7-18); CALCIUM LEVEL 8.6 MG/DL (8.5-10.1); CARBON DIOXIDE LEVEL 30 MEQ/L (21-32); CHLORIDE LEVEL 109 MEQ/L (98-107); CREATININE FOR GFR 0.73 MG/DL (0.70-1.30); GLOMERULAR FILTRATION RATE > 60.0 (>56); GLUCOSE, FASTING 112 MG/DL (70-100); POTASSIUM SERUM 3.7 MEQ/L (3.5-5.1); SODIUM LEVEL 142 MEQ/L (136-145); TOTAL PROTEIN 6.3 GM/DL (6.4-8.2)
[2019-05-13] MEDS: ENOXAPARIN 40 MG/0.4 ML SYRINGE (J1650) SC SCH (08:01)
[2019-05-13] MEDS: amLODIPine 5 MG TAB PO SCH (08:01)
[2019-05-13] MEDS: OLMESARTAN MEDOXOMIL 20 MG TAB (BENICAR) PO SCH (08:01)
[2019-05-13 14:34] VITALS: BP 113/74
[2019-05-13] MEDS: ALVIMOPAN 12 MG CAPSULE (ENTEREG) PO SCH (20:02)
[2019-05-13 20:51] VITALS: BP 115/72
[2019-05-13] MEDS: SIMETHICONE 80 MG CHEW TAB PO PRN (21:41)
[2019-05-14] MEDS: IBUPROFEN 600 MG TAB PO SCH ×3 (01:35→18:41)
[2019-05-14] MEDS: ONDANSETRON 4MG/2ML VIAL (J2405) IV PRN (01:39)
[2019-05-14] MEDS: NORCO, ANEXSIA 5/325MG TABLET (HYDROcodone/ACETAMINOPHEN) PO PRN ×3 (01:48→14:53)
[2019-05-14 02:13] VITALS: BP 131/77
[2019-05-14 05:47] VITALS: BP 131/76
[2019-05-14] MEDS: SIMETHICONE 80 MG CHEW TAB PO PRN ×2 (08:51→21:11)
[2019-05-14] MEDS: amLODIPine 5 MG TAB PO SCH (08:51)
[2019-05-14] MEDS: OLMESARTAN MEDOXOMIL 20 MG TAB (BENICAR) PO SCH (08:51)
[2019-05-14] MEDS: ALVIMOPAN 12 MG CAPSULE (ENTEREG) PO SCH ×2 (08:51→21:10)
[2019-05-14] MEDS: ENOXAPARIN 40 MG/0.4 ML SYRINGE (J1650) SC SCH (08:52)
--- NOTE | 2019-05-14 11:10 | IPN ---
DATE: 05/13/2019 HISTORY: The patient is now postoperative day #1 from a robotic-assisted laparoscopic sigmoid colectomy for diverticulitis. He has generally done well overnight with excellent oral intake and urine output. Vital signs show that he has been afebrile since surgery. His pulse is in the 80s generally and his blood pressure is in the 110s to 130 approximately systolic. Intake and output shows that yesterday he had 4500 in with 500 of urine output. This morning, he has had several voids which have not been accurately measured. PHYSICAL EXAMINATION: The patient is awake and alert. He does have some discomfort which he relates to the one larger incision where the colon was removed. He has been ambulating in the hallway earlier today. Heart exam shows a regular rate and rhythm. He is not tachycardiac. The lungs are clear. The abdomen is perhaps mildly distended. His dressings are clean and dry. He does have bowel sounds present. The abdomen is soft with some expected tenderness. LABORATORY STUDIES: Show a white count of 12, hemoglobin 13, hematocrit 39 and platelet count of 257,000. Differential count shows 72% neutrophils, 17% lymphocytes and 11% monocytes. Chemistry profile shows normal electrolytes with the exception of a minimal rise of the chloride to 109. BUN is 7, creatinine 0.7 and a glucose 112. IMPRESSION: The patient is doing very well postoperative day #1 from his sigmoid colectomy. He is feeling somewhat full, but has been drinking quite a lot of fluid. He has tried some solid food. He has not had any nausea or vomiting, but also denies any flatus or bowel movement at this time. PLAN: I advised the patient to go slowly with his diet. He can take solid food, but should be cautious and back off eating if he feels nauseous or uncomfortable. He should be up to ambulate as much as he can. I will start some Entereg today, though he has not taken much in the way of narcotic analgesics at this point. I would expect that he would improve over the next day or two to a point where we can consider discharge.
--- NOTE | 2019-05-14 11:53 | IPNPDOC ---
Text Note Date of Service The patient was seen on 05/14/19. NOTE Patient is POD2 after RA Laparoscopic sigmoid colectomy for recurrent diverticulitis. He did not tolerate his meal yesterday, felt some cramping, gas pain, mild nausea relieved with simethicone. Feels slightly better today but thinks would feel a lot better if he is able to pass more flatus. No BMs yet. Otherwise stable. On exam, he looks comfortable. Lungs are clear to auscultation He is nontachycardic Abdomen has some mild distention and tympany on upper abdomen. Port site dressings are dry. He has mild tenderness around the incision sites, minimal at the LUQ area. PLANS: He would like to stay on liquids this morning but would try soft, solid foods later if he continues to do well. I encouraged him to ambulate the hallways to help with forward passage of air. Otherwise he is stable. No labs today. VS,Fishbone, I+O VS, Fishbone, I+O Vital Signs Date Time Temp Pulse Resp B/P (MAP) Pulse Ox O2 Delivery O2 Flow Rate FiO2 05/14/19 09:22 18 Room Air 05/14/19 08:51 131/76 05/14/19 08:51 75 05/14/19 05:47 98.7 95 05/12/19 13:25 10 I&O- Last 24 Hours up to 6 AM 05/14/19 06:00 Intake Total 3260 ml Balance 3260 ml NATHANIEL LOPEZ MD May 14, 2019 11:53
[2019-05-14 14:00] VITALS: BP 116/48
[2019-05-14 20:30] VITALS: BP 127/72
[2019-05-14 21:00] VITALS: O2SAT 96
[2019-05-15] MEDS: IBUPROFEN 600 MG TAB PO SCH ×2 (02:55→09:11)
[2019-05-15 06:15] VITALS: BP 128/73
--- NOTE | 2019-05-15 06:21 | RO ---
DATE OF PROCEDURE: 05/12/2019 PREOPERATIVE DIAGNOSIS: Sigmoid diverticulosis with recurring diverticulitis. POSTOPERATIVE DIAGNOSIS: Sigmoid diverticulosis with acute diverticulitis and history of recurring diverticulitis. PROCEDURE PERFORMED: Robotic-assisted laparoscopic sigmoid colectomy with colorectostomy and lysis of adhesions. SURGEON: Dr. Rizwan Ochoa TRASH COLLECTOR SUPERVISOR: Dr. Gregor Gill who was essential for assisting in the colorectal anastomosis and performance of the followup sigmoidoscopy. SECOND PACKAGING LINE OPERATOR: SUZETTE Burrows, who was essential for aiding in trocar placement, docking, passage of instruments and equipment. ANESTHESIA: General. INDICATIONS FOR PROCEDURE: The patient is a 58-year-old man with a history of recurring episodes of sigmoid diverticulitis. He has had at least three episodes over the left 6 months all involving the same area. He is now for a robotic-assisted laparoscopic sigmoid colectomy. OPERATIVE PROCEDURE: The patient was brought to the operating room and placed on the table in a supine position. He was placed under general endotracheal anesthesia. TEDS and sequentials were utilized. A Quezada catheter was inserted. The patient was moved into a low lithotomy position. A digital rectal examination revealed no palpable mass and no evidence of stricture. The patient's abdomen was prepped and draped in a sterile fashion. 0.25% Marcaine was infiltrated at the trocar sites as needed. Initially, a short transverse incision was made in the left upper quadrant and a Veress needle was inserted. After positive hanging drop test, the abdomen inflated with carbon dioxide gas. An 8 mm port was placed without difficulty. Initial examination showed no significant adhesions in the left upper quadrant. The patient had some fairly marked adhesions of the right lobe of the liver to the anterior abdominal wall and the surrounding omentum, presumably from his prior surgery. In the left lower quadrant, his sigmoid colon was noted to be clearly acutely inflamed over a roughly 5 cm length which was adherent to the anterior abdominal wall. A second 8 mm port was placed slightly above the umbilicus. A 12 mm port was placed in the right lower quadrant medially and a third 8 mm port was placed lower in the right lower quadrant. The patient was tilted to a slight Trendelenburg position. The patient cart of the da Omar XI robot was brought into position and docked to the endoscope port. Targeting took place and the additional robotic arms were docked to the remaining trocars. A force bipolar, cauterizing scissors and grasping retractor were then placed through the working ports. I then moved to the control console to proceed with the robotic portion of the procedure. Inspection in the lower abdomen revealed the sigmoid colon and a small area adhered to the anterior abdominal wall as noted. The colon was freed from the anterior abdominal wall by a combination of blunt and cautery dissection. The lateral attachments of the sigmoid colon were then divided using cautery and scissors dissection. This dissection was carried up along the lateral border of the descending colon all the way to the inferior edge of the spleen. Blunt dissection was used to develop the plane lateral to the descending colon. The dissection was then carried across the sigmoid colon. Once the descending colon had been adequately freed, it was clear that there would be adequate length for anastomosis down in the pelvis. A site for transection of the descending colon was selected perhaps 8-10 cm proximal to the area of inflammation. The mesentery was divided using the vessel sealer and the colon was stapled with a 60 mm robotic stapler. The mesentery was then dissected working distally through the sigmoid colon. As this was not a malignancy, I did not attempt to take a generous sampling of the mesentery. The dissection was carried across the sacral promontory and inferiorly to below the most distal diverticula. The mesorectum was then divided with a vessel sealer and the colon was transected with a second firing of the 60 mm stapler with a green load. The specimen was set aside. At this point, Dr. Gill scrubbed into the procedure. A short longitudinal incision was made through the port site in the supraumbilical position. This was approximately 5-6 cm in length. The abdomen was deflated and the trocar at this site was removed. A small Tapan retractor was utilized as a wound protector. The specimen was delivered through the retractor and was an approximately 30 centimeter segment of colon. This was sent for permanent pathology. The proximal end of the descending colon was delivered through the wound. Some fibrofatty tissue was dissected free and the staple line was removed. The lumen would readily admit a 29 mm EEA stapler anvil. A pursestring suture of #2-0 Prolene was placed and the anvil was inserted and the pursestring tied down. The end of the colon was irrigated with saline and this was then reduced into the abdomen. The surgical team then changed gown and gloves and used the closing tray to close the short supraumbilical midline incision. The abdomen was then reinflated. The anvil of the stapler was grasped through the remaining ports. Dr. Gill proceeded down to the perineum. He gently dilated the rectum with the 29 mm EEA sizer and the powered stapler was then inserted up to the end of the rectum. The post of the stapler was advanced through the end of the bowel and the anvil was attached and closed and the stapler was fired. The removed stapler showed two excellent tissue donuts. The pelvis was filled with saline and Dr. Gill performed a gentle sigmoidoscopy with a flexible endoscope. The anastomosis was nicely seen and appeared intact with no bleeding. There were no air bubbles identified around the anastomosis during the insufflation of air. The scope was removed and the patient was returned to a flat position. I removed any available irrigation from within the abdomen using the suction ballroom dance instructor. Inspection showed no evidence of any bleeding. The 12 mm port was removed and a Ifeanyi-Rodney device was used to place a single suture of #1-0 Vicryl to close the peritoneum. The remaining gas within the abdomen was released and the last trocars were removed. The skin incisions were all closed with buried #4-0 Vicryl and Steri-Strips. Light dressings were applied. The patient's Quezada catheter was removed. He was then awakened in the operating room, extubated and moved to the recovery room in stable condition.
[2019-05-15] MEDS: OLMESARTAN MEDOXOMIL 20 MG TAB (BENICAR) PO SCH (09:09)
[2019-05-15 09:11] VITALS: BP 128/73
[2019-05-15] MEDS: ALVIMOPAN 12 MG CAPSULE (ENTEREG) PO SCH (09:11)
[2019-05-15] MEDS: amLODIPine 5 MG TAB PO SCH (09:11)
[2019-05-15] MEDS: ENOXAPARIN 40 MG/0.4 ML SYRINGE (J1650) SC SCH (09:12)
[2019-05-15] MEDS ORDERED: MOM 30ML SUSPENSION UDC PO ONE (12:00)
[2019-05-15 14:13] VITALS: BP 128/65
[2019-05-15] MEDS ORDERED: HYDR-3715 PO (15:40)
[2019-05-15] MEDS: NORCO, ANEXSIA 5/325MG TABLET (HYDROcodone/ACETAMINOPHEN) PO PRN (16:44)
== END 2019-05-15 17:10 | disposition home or self-care (01) | DRG 221 ==
LOC: M OR 05-12 05:48 → M MS5PR 05-12 14:16
PROVIDERS: ADMIT Surgery; ATTEND Surgery
PROC: 8E0W4CZ Robotic Assisted Procedure of Trunk Region, Percutaneous Endoscopic Approach (ICD-10-PCS; 2019-05-12)
PROC: 0DBN4ZZ Excision of Sigmoid Colon, Percutaneous Endoscopic Approach (ICD-10-PCS; principal; 2019-05-12 07:30)
DX: K57.30 Diverticulosis of large intestine without perforation or abscess without bleeding (principal); E66.9 Obesity, unspecified; I10 Essential (primary) hypertension; G47.33 Obstructive sleep apnea (adult) (pediatric); Z87.891 Personal history of nicotine dependence; F41.9 Anxiety disorder, unspecified; F32.9 Major depressive disorder, single episode, unspecified; I45.10 Unspecified right bundle-branch block

== ENCOUNTER → 2019-04-14 | Outpatient (CLI) | payer BC ==
--- NOTE | 2019-04-18 11:01 | SLEEPCENT ---
DATE OF PROCEDURE: 04/14/2019 ORDERED BY: Francy Vargas NP Nocturnal polysomnography was performed for evaluation of sleep physiology in this patient with a history of snoring. 8 hours and 13 minutes of data were reviewed. There are 429.5 minutes of sleep identified. Sleep latency was short at 2.5 minutes. REM latency was normal at 75 minutes. Sleep architecture was fairly good with multiple REM cycles. Overall sleep efficiency 88.6%. The patient's electrocardiogram showed a sinus rhythm with an average heart rate of 70 beats per minute. Rate ranged 60 to 85. EEG showed normal waveforms for awake and sleep stages. There were 131 respiratory events identified of 10 seconds in duration or greater for an apnea-hypopnea index of 18.3. The events were obstructive, not exclusive to sleep stage nor body position. Arousals from respiratory events were noted 5.2 times per hour and oxygen desaturations into the mid 70s were seen. There was some activity noted in the limb leads early in the study. Limb movement arousal index was 3.8. IMPRESSION: Obstructive sleep apnea syndrome (G4 7.33). Apnea-hypopnea index 18.3. RECOMMENDATIONS: The patient should be encouraged to return to sleep disorder center for pressure therapy. In the interim, alcohol and sedative avoidance should be practiced and caution exercised during the operation of motor vehicles.
== END ==
LOC: M SLEEP 19:36
PROVIDERS: ATTEND Nurse Practitioner Family
DX: G47.33 Obstructive sleep apnea (adult) (pediatric) (principal)

== ENCOUNTER → 2023-04-13 | Outpatient (CLI) | payer BC ==
[~2023-04-13] MED LIST changes: +AMLO-602 PO; -AZOR5TAB2 PO; +CYCL-707; -CYCL10TA; +MECL-209 PO; -MECL1TAB31 PO; +PROHANCE 279.3MG/ML 15ML VIAL ONE; +PROHANCE 279.3MG/ML 5ML VIAL ONE
== END ==
LOC: M PLAIMG 08:05
PROVIDERS: ATTEND Urology
DX: R97.20 Elevated prostate specific antigen [PSA] (principal); R93.89 Abnormal findings on diagnostic imaging of other specified body structures
CPT/HCPCS: 72197; A9576

== ENCOUNTER → 2023-04-28 | Outpatient (REF) | payer BC ==
[~2023-04-28] MED LIST changes: -PROHANCE 279.3MG/ML 15ML VIAL ONE; -PROHANCE 279.3MG/ML 5ML VIAL ONE
== END ==
LOC: M SMT PRO 12:42
PROVIDERS: ATTEND Urology
DX: R97.20 Elevated prostate specific antigen [PSA] (principal); N42.39 Other dysplasia of prostate

== ENCOUNTER → 2023-07-31 | Outpatient (CLI) | payer OTHER | LOC: M PLARAD 10:58 | PROVIDERS: ATTEND Internal Medicine | DX: M54.50 Low back pain, unspecified (principal); M47.816 Spondylosis without myelopathy or radiculopathy, lumbar region; M47.817 Spondylosis without myelopathy or radiculopathy, lumbosacral region; M51.36 Other intervertebral disc degeneration, lumbar region ==

== ENCOUNTER → 2023-08-11 | Outpatient (CLI) | payer OTHER ==
[~2023-08-11] MED LIST changes: +GASTROGRAFIN SOLUTION 30ML As Ordered ONE; +ISOVUE-370 76% 100ML VIAL As Ordered ONE
== END ==
LOC: M RAD 08:28
PROVIDERS: ATTEND Internal Medicine
DX: R63.4 Abnormal weight loss (principal); R91.1 Solitary pulmonary nodule; R10.9 Unspecified abdominal pain; N28.1 Cyst of kidney, acquired; Z90.49 Acquired absence of other specified parts of digestive tract; I25.10 Atherosclerotic heart disease of native coronary artery without angina pectoris; I70.0 Atherosclerosis of aorta; N62 Hypertrophy of breast
CPT/HCPCS: 71250; 74177; Q9963; Q9967

== ENCOUNTER → 2023-11-04 | Outpatient (CLI) | payer OTHER ==
[~2023-11-04] MED LIST changes: -GASTROGRAFIN SOLUTION 30ML As Ordered ONE; -ISOVUE-370 76% 100ML VIAL As Ordered ONE
[2023-11-06 13:01] LABS: PSA FREE 0.4 ng/mL; PSA TOTAL 2.5 ng/mL (< OR = 4.0)
== END ==
LOC: M PLALAB 09:19
PROVIDERS: ATTEND Urology
DX: R97.20 Elevated prostate specific antigen [PSA] (principal)

== ENCOUNTER → 2023-11-11 | Outpatient (CLI) | payer OTHER | LOC: M PLAIMG 12:31 | PROVIDERS: ATTEND Internal Medicine | DX: R91.1 Solitary pulmonary nodule (principal); J84.9 Interstitial pulmonary disease, unspecified; I70.0 Atherosclerosis of aorta; I25.10 Atherosclerotic heart disease of native coronary artery without angina pectoris ==

== ENCOUNTER → 2024-03-17 | Outpatient (CLI) | payer OTHER | LOC: M RAD 10:45 | PROVIDERS: ATTEND Internal Medicine | DX: R91.1 Solitary pulmonary nodule (principal) ==

== ENCOUNTER → 2024-04-25 | Outpatient (CLI) | payer OTHER ==
[2024-04-27 12:42] LABS: PSA FREE 0.5 ng/mL; PSA TOTAL 2.9 ng/mL (< OR = 4.0)
== END ==
LOC: M PLALAB 10:28
PROVIDERS: ATTEND Urology
DX: R97.20 Elevated prostate specific antigen [PSA] (principal)

== ENCOUNTER → 2024-05-06 | Outpatient (REF) | payer OTHER ==
[2024-05-06 19:16] LABS: APPEARANCE, URINE CLEAR (CLEAR); BACTERIA, URINE AUTO NEGATIVE (NEGATIVE); BILIRUBIN, URINE AUTO NEGATIVE (NEGATIVE); BLOOD, URINE BLOOD 1+ (NEGATIVE); COLOR, URINE STRAW (YELLOW); GLUCOSE, URINE (UA) AUTO NEGATIVE (NEGATIVE); KETONE, URINE AUTO NEGATIVE (NEGATIVE); LEUKOCYTE ESTERASE, URINE AUTO NEGATIVE (NEGATIVE); NITRITE, URINE AUTO NEGATIVE (NEGATIVE); PROTEIN, URINE AUTO NEGATIVE (NEGATIVE); RBC, URINE AUTO 0 /HPF (0-3); SPECIFIC GRAVITY URINE AUTO 1.003 (1.002-1.035); SQUAMOUS EPITHELIAL CELL UR AU 0 /HPF (0-6); UROBILINOGEN, URINE AUTO 0.2 mg/dL (0.0-2.0); WBC, URINE AUTO 1 /HPF (0-3)
== END ==
LOC: M SMT 17:11
PROVIDERS: ATTEND Urology
DX: R39.15 Urgency of urination (principal); R30.0 Dysuria

== ENCOUNTER → 2024-11-07 | Outpatient (CLI) | payer OTHER ==
[2024-11-10 15:04] LABS: PSA % FREE 16.0 % (calc) (>25); PSA FREE 0.6 ng/mL; PSA TOTAL 3.8 ng/mL (< OR = 4.0)
== END ==
LOC: M PLALAB 12:51
PROVIDERS: ATTEND Urology
DX: R97.20 Elevated prostate specific antigen [PSA] (principal)